=== PATIENT | male | born 1930 | race Caucasian/White ===

== ENCOUNTER 2017-06-07 08:17 | Emergency (ER) | payer OTHER, MEDICAID ==
[~2017-06-07] VITALS: Ht 177.8 cm; Wt 80.0 kg
[2017-06-07] MEDS ORDERED: ATOR40TA70 PO (08:26)
[2017-06-07] MEDS ORDERED: ATEN50TA PO (08:26)
[2017-06-07] MEDS ORDERED: CITA10TA16 PO (08:26)
[2017-06-07] MEDS ORDERED: CLONIDINE 0.2MG TABLET PO ONE (17:00)
[2017-06-07 19:19] VITALS: BP 153/94
== END 2017-06-07 19:20 | disposition home or self-care (01) ==
LOC: ER 08:27
DX: S50.11XA Contusion of right forearm, initial encounter (principal); M54.5 Low back pain; I10 Essential (primary) hypertension; E78.00 Pure hypercholesterolemia, unspecified; F32.9 Major depressive disorder, single episode, unspecified; Z86.73 Personal history of transient ischemic attack (TIA), and cerebral infarction without residual deficits; W18.30XA Fall on same level, unspecified, initial encounter; Y93.89 Activity, other specified; Y92.89 Other specified places as the place of occurrence of the external cause; Y99.8 Other external cause status
CPT/HCPCS: 73080; 73090; 99284

== ENCOUNTER 2019-09-18 15:43 | Emergency (ER) | payer OTHER, MEDICAID ==
[~2019-09-18] VITALS: Ht 165.1 cm; Wt 82.0 kg
[~2019-09-18 15:43] MED LIST: ATEN50TA PO; ATOR40TA70 PO; CITA10TA16 PO
[2019-09-18] MEDS ORDERED: SODIUM CHLORIDE 0.9% 1,000 ML IV ONE (16:00)
[2019-09-18 16:50] LABS: EOSINOPHILS % 1.6 % (0.0-5.0); HEMATOCRIT. 46.2 % (42.0-52.0); HEMOGLOBIN. 15.7 g/dL (14.0-18.0); LYMPHOCYTES % 14.3 % (20.0-50.0); MEAN CORPUSCULAR HEMOGLOBIN 30.9 pg (28.0-32.0); MEAN CORPUSCULAR VOLUME 91.2 fL (80.0-94.0); MEAN PLATELET VOLUME 9.4 fl (7.4-10.4); MONOCYTES % 6.6 % (2.0-8.0); NEUTROPHILS % 76.5 % (40.0-76.0); PLATELET 159 x1000/uL (130-400); RED BLOOD CELL COUNT 5.06 mill/uL (4.7-6.1); RED CELL DISTRIBUTION WIDTH 13.6 % (11.6-14.6)
[2019-09-18 16:59] LABS: PROTHROMBIN TIME 10.5 sec (9.6-11.0)
[2019-09-18 17:00] LABS: CHLORIDE 106 mEq/L (98-107)
[2019-09-18 18:40] LABS: CLARITY URINE CLOUDY (CLEAR); COLOR URINE DARK YELLOW (YELLOW); KETONES URINE TRACE (NEGATIVE); LEUKOCYTE ESTERASE URINE TRACE (NEGATIVE); NITRITE URINE NEGATIVE (NEGATIVE); OCCULT BLOOD URINE 2+ (NEGATIVE); PROTEIN URINE 4+ (NEGATIVE); SPECIFIC GRAVITY URINE 1.028 (1.005-1.030)
[2019-09-18] MEDS ORDERED: CEFTRIAXONE 1 G PREMIX 50 ML IV ONE (19:00)
[2019-09-18 20:00] VITALS: BP 173/93
[2019-09-18] MEDS ORDERED: HYDRALAZINE 20MG/ML VIAL IV ONE (21:15)
== END 2019-09-18 21:39 | disposition short-term general hospital (02) ==
LOC: ER 15:43 → CANBEDREQ 22:17
DX: G93.40 Encephalopathy, unspecified (principal); N30.00 Acute cystitis without hematuria; F32.9 Major depressive disorder, single episode, unspecified; E78.00 Pure hypercholesterolemia, unspecified; I10 Essential (primary) hypertension; Z86.73 Personal history of transient ischemic attack (TIA), and cerebral infarction without residual deficits; Z79.899 Other long term (current) drug therapy
CPT/HCPCS: 36415; 70450; 71045; 80053; 81003; 84484; 85025; 85610; 96374; 99285; J0360; J0696; J7030

== ENCOUNTER 2021-06-02 16:08 | Emergency (ER) | payer MEDICAID, OTHER ==
[~2021-06-02] VITALS: Ht 162.6 cm; Wt 73.0 kg
[2021-06-02] MEDS ORDERED: SODIUM CHLORIDE 0.9% 1,000 ML IV ONE (17:45)
[2021-06-02] MEDS ORDERED: SODIUM CHLORIDE 0.9% 1000ML BAG (SEPSIS BOLUS) IV ONE (18:00)
[2021-06-02 18:58] LABS: BASOPHILS % 0.4 % (0.0-2.0); EOSINOPHILS % 0.4 % (0.0-5.0); HEMATOCRIT. 26.9 % (42.0-52.0); HEMOGLOBIN. 8.9 g/dL (14.0-18.0); LYMPHOCYTES % 10.9 % (20.0-50.0); MEAN CORPUSCULAR HEMOGLOBIN 29.9 pg (28.0-32.0); MEAN CORPUSCULAR VOLUME 90.8 fL (80.0-94.0); MEAN PLATELET VOLUME 8.4 fl (7.4-10.4); MONOCYTES % 3.7 % (2.0-8.0); NEUTROPHILS % 84.6 % (40.0-76.0); PLATELET 154 x1000/uL (130-400); RED BLOOD CELL COUNT 2.96 mill/uL (4.7-6.1); RED CELL DISTRIBUTION WIDTH 15.9 % (11.6-14.6)
[2021-06-02] MEDS ORDERED: PIPERACILLIN/TAZ 3.375G PREMIX 50 ML IV ONE (19:15)
[2021-06-02 19:25] LABS: CLARITY URINE CLEAR (CLEAR); COLOR URINE YELLOW (YELLOW); KETONES URINE NEGATIVE (NEGATIVE); LEUKOCYTE ESTERASE URINE 2+ (NEGATIVE); NITRITE URINE NEGATIVE (NEGATIVE); OCCULT BLOOD URINE 2+ (NEGATIVE); PH URINE 8.5 (4.5-8.0); PROTEIN URINE 1+ (NEGATIVE); SPECIFIC GRAVITY URINE 1.012 (1.005-1.030); UROBILINOGEN URINE 0.2 E.U./dL (0.2-1.0)
[2021-06-02] MEDS ORDERED: VANCOMYCIN 1G PREMIX 200 ML IV SCH (19:30)
[2021-06-02 19:32] LABS: CHLORIDE 113 mEq/L (98-107)
[2021-06-02] MEDS ORDERED: ASPIRIN 81MG TABLET NG ONE (20:00)
[2021-06-02] MEDS ORDERED: FLUCONAZOLE 50MG TABLET GT ONE (20:00)
[2021-06-02] MEDS ORDERED: VANCOMYCIN 1GM PMX (XELLIA) 200 ML IV NR (20:12)
[2021-06-02] MEDS ORDERED: PIPERACILLIN/TAZ 3.375G PREMIX 50 ML IV NR (20:30)
[2021-06-02 23:50] VITALS: BP 146/89
== END 2021-06-02 23:51 | disposition short-term general hospital (02) ==
LOC: ER 16:08
DX: R53.1 Weakness (principal); N39.0 Urinary tract infection, site not specified; R77.8 Other specified abnormalities of plasma proteins; F32.9 Major depressive disorder, single episode, unspecified; E78.00 Pure hypercholesterolemia, unspecified; I10 Essential (primary) hypertension; Z86.73 Personal history of transient ischemic attack (TIA), and cerebral infarction without residual deficits
CPT/HCPCS: 36415; 71045; 80053; 81003; 83605; 84484; 85025; 87040; 87086; 93005; 96361; 96365; 96368; 99285; J2543; J3370; J7030